=== PATIENT | male | born 1990 | race Caucasian/White ===

== ENCOUNTER 2017-12-16 13:53 | Emergency (ER) | payer MEDICAID ==
[~2017-12-16] VITALS: Ht 188 cm; Wt 80.7 kg
[2017-12-16 13:58] VITALS: BP 134/75
--- NOTE | 2017-12-16 14:06 | NUR ---
PATIENT PRESENTS TO ED WITH THE CHIEF C/O HAND LACERATION. PER PT, HE WAS WORKING IN HIS CAR AND HIT SHARP OBJECT ACCIDENTLY AND GOT CUT ON HIS RIGHT HAND . DENIES N/V/D; SKIN IS PINK/WARM/DRY; AAOX4 WITH EVEN AND STEADY GAIT. PT DENIES ANY FEVER, CP, SOB, OR COUGH AT THIS TIME; PATIENT STATES PAIN OF 3/10 AT THE LACERATION SITE THIS TIME; VSS; PATIENT POSITIONED FOR COMFORT; HOB ELEVATED; BEDRAILS UP X2; BED DOWN. ER MD MADE AWARE OF PT STATUS.
--- NOTE | 2017-12-16 14:08 | NUR ---
HAS OPEN WOUND. NO ACTIVE BLEEDING AT THE SITE.
--- NOTE | 2017-12-16 14:19 | NUR ---
PT BEING EVALUATED BY DR. MILES.
--- NOTE | 2017-12-16 14:26 | NUR ---
WOUND IRRIGATION DONE AND APPLIED DERMA-JOHNSTON PER ORDER.
--- NOTE | 2017-12-16 15:08 | NUR ---
Patient discharged with v/s stable. Written and verbal after care instructions given and explained. Patient verbalized understanding. Ambulatory with steady gait. All questions addressed prior to discharge. Advised to follow up with PMD.
[2017-12-16 15:11] VITALS: BP 135/81
== END 2017-12-16 15:08 | disposition home or self-care (01) ==
LOC: MED 13:53
DX: S61.411A Laceration without foreign body of right hand, initial encounter (principal); W45.8XXA Other foreign body or object entering through skin, initial encounter; Y93.89 Activity, other specified; Y92.89 Other specified places as the place of occurrence of the external cause; Y99.8 Other external cause status
CPT/HCPCS: 12001; 90471; 90715; 99283

== ENCOUNTER 2021-05-10 02:53 | Emergency (ER) | payer MEDICAID ==
[~2021-05-10] VITALS: Ht 185.4 cm; Wt 79.4 kg
[2021-05-10 03:07] VITALS: BP 148/100
--- NOTE | 2021-05-10 03:15 | NUR ---
TO BED 5 FOLLOWING TRIAGE
[2021-05-10] MEDS ORDERED: ONDANSETRON 4 MG/2 ML VIAL IVP ONE (03:55)
[2021-05-10] MEDS ORDERED: KETOROLAC 30 MG/ML VIAL IVP ONE (03:55)
[2021-05-10] MEDS ORDERED: NACL 0.9% 1,000 ML IV SCH (03:55)
--- NOTE | 2021-05-10 04:08 | NUR ---
Patient medicated via IVP. Patient offered heating pack for futher pain management and refused.
[2021-05-10 04:13] LABS: BASOPHILS % (AUTO) 0.4 % (0.0-2.0); HEMATOCRIT 46.9 % (36-52); HEMOGLOBIN 16.2 g/dL (12.0-18.0); LYMPHOCYTES # (AUTO) 0.6 K/uL (2.0-11.5); LYMPHOCYTES % (AUTO) 6.7 % (20.5-51.1); MEAN CORPUSCULAR HEMOGLOBIN 30 pg (27-31); MEAN CORPUSCULAR HGB CONC 35 g/dL (33-37); MEAN CORPUSCULAR VOLUME 87.6 fL (80-94); MONOCYTES # (AUTO) 0.4 K/uL (0.8-1.0); MONOCYTES % (AUTO) 3.9 % (1.7-9.3); NEUTROPHILS # (AUTO) 8.3 K/uL (1.8-7.7); PLATELET COUNT (AUTO) 302 K/uL (140-450); RED BLOOD CELL COUNT(AUTO) 5.36 MIL/uL (4.20-6.10); RED CELL DISTRIBUTION WIDTH 13.8 % (11.6-13.7); WHITE BLOOD COUNT (AUTO) 9.4 K/uL (4.8-10.8)
[2021-05-10 04:36] LABS: ALBUMIN 4.2 g/dL (3.4-5.0); CARBON DIOXIDE 28.1 mmol/L (21-32); TOTAL BILIRUBIN 0.8 mg/dL (0.0-1.0)
[2021-05-10 04:45] LABS: POTASSIUM 5.1 mmol/L (3.5-5.1)
--- NOTE | 2021-05-10 05:10 | NUR ---
URINE OBTAINED SENT TO LAB. URINE DIP DONE
--- NOTE | 2021-05-10 05:48 | NUR ---
IV HEPLOCKED. PT 0. PENDING RESULTS FOR U/S AND CT
[2021-05-10 05:58] LABS: APPEARANCE,URINE HAZY (CLEAR); BILIRUBIN,URINE 1+ (NEGATIVE); BLOOD, URINE 3+ (NEGATIVE); COLOR,URINE YELLOW (YELLOW); LEUKOCYTE ESTERASE ,URINE TRACE (NEGATIVE); NITRITE, URINE NEGATIVE (NEGATIVE); PH,URINE 6.5 (5.0-9.0); UGLUCOSE NEGATIVE (NEGATIVE)
[2021-05-10 06:15] LABS: RBC,URINE >100 /HPF (0-5); WBC,URINE 0-5 /HPF (0-5)
[2021-05-10 06:42] VITALS: BP 115/97
--- NOTE | 2021-05-10 06:43 | NUR ---
PT RESTING IN BED. VITALS WNL. 010 . AT BEDSIDE. WAITING CT AND U/S RESULTS. SIDE RAILS UP.
--- NOTE | 2021-05-10 07:18 | NUR ---
report received from night RN for transfer of care
--- NOTE | 2021-05-10 07:48 | NUR ---
Patient appears to be resting comfortably in bed. Vital Signs within normal limits. Respirations even and unlabored.
[2021-05-10] MEDS ORDERED: ACET-8386 PO (09:03)
[2021-05-10] MEDS ORDERED: IBUP-2213 PO (09:03)
[2021-05-10] MEDS ORDERED: TAMS0.4C96 PO (09:03)
--- NOTE | 2021-05-10 09:14 | NUR ---
Patient discharged with v/s stable. Written and verbal after care instructions given and explained. Patient alert, oriented and verbalized understanding of instructions. Ambulatory with steady gait. All questions addressed prior to discharge. ID band removed. Patient advised to follow up with PMD. Rx of MOTRIN, FLOMAX, AND HYDROCODONE/ACETAMINOPHEN given. Patient educated on indication of medication including possible reaction and side effects. Opportunity to ask questions provided and answered.
== END 2021-05-10 09:13 | disposition home or self-care (01) ==
LOC: MED 02:53
DX: R10.13 Epigastric pain (principal); R11.0 Nausea
CPT/HCPCS: 36415; 74176; 76705; 80053; 81001; 83690; 85025; 87086; 96374; 96375; 99285; J1885; J2405; J7030

== ENCOUNTER 2022-02-06 13:08 | Emergency (ER) | payer MEDICAID ==
[~2022-02-06] VITALS: Ht 185.4 cm; Wt 76.2 kg
[~2022-02-06 13:08] MED LIST: ACET-8905 PO; IBUP-2213 PO; TAMS0.4C96 PO
[2022-02-06 13:18] VITALS: BP 116/77
--- NOTE | 2022-02-06 13:24 | NUR ---
C/O EPIGASTRIC PAIN X1 DAY, DENIES ANY NVD. PAIN ONLY WHEN THEY COUGH OR THEY MOVE. NO PAIN NOTED UPON PALPATION, NO SOB, DENIES ANY CHEST PAIN NKA PMH: DENIES
[2022-02-06 13:54] LABS: BASOPHILS % (AUTO) 0.9 % (0.0-2.0); EOSINOPHILS % (AUTO) 0.6 % (0.0-4.0); HEMATOCRIT 47.3 % (36-52); HEMOGLOBIN 16.2 g/dL (12.0-18.0); LYMPHOCYTES % (AUTO) 18.5 % (20.5-51.1); MEAN CORPUSCULAR HEMOGLOBIN 30 pg (27-31); MEAN CORPUSCULAR HGB CONC 34 g/dL (33-37); MEAN CORPUSCULAR VOLUME 87.6 fL (80-94); MONOCYTES # (AUTO) 0.9 K/uL (0.8-1.0); MONOCYTES % (AUTO) 15.5 % (1.7-9.3); NEUTROPHILS # (AUTO) 3.6 K/uL (1.8-7.7); NEUTROPHILS % (AUTO) 64.5 % (42.2-75.2); PLATELET COUNT (AUTO) 199 K/uL (140-450); RED CELL DISTRIBUTION WIDTH 13.3 % (11.6-13.7); WHITE BLOOD COUNT (AUTO) 5.6 K/uL (4.8-10.8)
[2022-02-06 13:57] LABS: APPEARANCE,URINE CLEAR (CLEAR); BILIRUBIN,URINE NEGATIVE (NEGATIVE); BLOOD, URINE NEGATIVE (NEGATIVE); COLOR,URINE YELLOW (YELLOW); LEUKOCYTE ESTERASE ,URINE NEGATIVE (NEGATIVE); NITRITE, URINE NEGATIVE (NEGATIVE); PH,URINE 6.5 (5.0-9.0); UGLUCOSE NEGATIVE (NEGATIVE)
[2022-02-06 14:23] LABS: ALBUMIN 3.9 g/dL (3.4-5.0); ANION GAP 12.4 (8-16); CARBON DIOXIDE 28.1 mmol/L (21-32); CREATININE 0.8 mg/dL (0.6-1.3); POTASSIUM 3.5 mmol/L (3.5-5.1); TOTAL BILIRUBIN 0.6 mg/dL (0.0-1.0)
[2022-02-06] MEDS ORDERED: POLY17PD72 PO ×2 (14:59→15:06)
[2022-02-06] MEDS ORDERED: ACET-10509 PO ×2 (14:59→15:06)
[2022-02-06 15:21] VITALS: BP 117/76
--- NOTE | 2022-02-06 15:21 | NUR ---
Patient discharged with v/s stable. Written and verbal after care instructions given. Patient alert, oriented and verbalized understanding of instructions. Ambulatory with steady gait. All questions addressed prior to discharge. ID band removed. Patient advised to follow up with PMD. Rx of TYLENOL AND CLEARLAX given. Opportunity to ask questions provided and answered.
== END 2022-02-06 15:21 | disposition home or self-care (01) ==
LOC: MED 13:08
DX: K59.00 Constipation, unspecified (principal); R14.0 Abdominal distension (gaseous); Z79.899 Other long term (current) drug therapy
CPT/HCPCS: 36415; 74018; 80053; 81003; 83690; 85025; 99284